=== PATIENT | female | born 1960 | race Caucasian/White ===

== ENCOUNTER → 2018-12-14 12:49 | Outpatient (CLI) | payer BC, SELFPAY ==
--- NOTE | 2018-12-14 12:52 | RAD_ITS ---
STUDY: X-RAY - CERVICAL SPINE REASON FOR EXAM: Female, 58 years old. , Numbness and tingling. TECHNIQUE: 3 view(s) of the cervical spine were obtained. COMPARISON: None FINDINGS: Normal anterior atlantoaxial articulation. Normal odontoid process. Normal cervical lordosis. Status post anterior cervical discectomy and fusion from C3 through C5 with an anterior plate with anatomic alignment. Suspect interbody fusion at C5/C6 and C6-C7 with anatomic alignment. Normal disc space heights. Normal visualized intervertebral neuroforamina. The soft tissue structures are unremarkable. RAD/Cerv Spine 2 or 3 Views IMPRESSION: Prior discectomy and fusion with anatomic alignment. Electronically Signed: Talat Claros MD at 13:45 EDT Tel , Service support ,
--- NOTE | 2018-12-14 12:52 | RAD_ITS ---
STUDY: X-RAY - SACRUM/COCCYX REASON FOR EXAM: Female, 58 years old. Pain TECHNIQUE: 3 view(s) of the sacrum and coccyx were obtained. COMPARISON: None. FINDINGS: Normal bilateral sacroiliac joints. Normal visualized sacral ala and fused sacral bodies. Marcated anterior angulation of the distal segment of the coccyx at a near 90 degree angle which may represent a normal variant or subluxation of the segment. Normal coccygeal segments. The presacral soft tissue structures are unremarkable. RAD/Sacrum-Coccyx min 2 Views IMPRESSION: Anterior angulation the distal coccygeal segment which may be a normal variant or subluxation. No definite fracture. Electronically Signed: Talat Claros MD at 13:43 EDT Tel , Service support ,
--- NOTE | 2018-12-14 13:28 | US_ITS ---
STUDY: THYROID ULTRASOUND REASON FOR EXAM: Female, 58 years old. Thyroid nodule TECHNIQUE: Ultrasound evaluation of the thyroid was performed with real-time and static [place]-scale imaging. COMPARISON: None. FINDINGS: RIGHT LOBE: The right lobe of the thyroid gland measures 5.3 x 1.6 x 1.8 cm. There is a homogeneous echotexture. There are no demonstrated solid, cystic or complex lesions. LEFT LOBE: The left lobe of the thyroid gland measures 4.6 x 1.6 x 1.3 cm. There is a homogeneous echotexture. 2 tiny colloid cyst in the left lobe measuring 2 and 3 mm in diameter. 8 mm solid and cystic nodule posteriorly in the left lobe consistent with an adenoma. ISTHMUS: The isthmus measures 2 mm thick. . The regional lymph nodes are normal. US/Thyroid IMPRESSION: 8 mm adenoma the posterior left lobe of the thyroid gland. Electronically Signed: Talat Claros MD at 16:02 EDT Tel , Service support ,
== END ==
DX: E04.1 Nontoxic single thyroid nodule (principal)
CPT/HCPCS: 72040; 72220; 76536

== ENCOUNTER → 2019-02-07 07:21 | Outpatient (CLI) | payer BC, SELFPAY ==
--- NOTE | 2019-02-07 07:23 | CT_ITS ---
STUDY: CT CERVICAL SPINE WITHOUT CONTRAST REASON FOR EXAM: Female, 58 years old. RT SIDE NECK/ARM PAIN RADIATION DOSAGE (If Supplied By Facility): CTDIvol = ( 15.25 ) mGy, DLP = ( 336.61 ) mGycm TECHNIQUE: High resolution transaxial imaging was performed without contrast material. Sagittal and coronal images were reconstructed. Individualized dose optimization techniques were used for this CT. COMPARISON: Radiographs 12/14/2018 FINDINGS: Normal craniovertebral junction. There are degenerative changes of the anterior atlantoaxial articulation. Normal odontoid process. 3 mm of C7-T1 anterolisthesis. Anterior surgical fusions of C3, C4, and C5. Surgical fusions of the C3-4, C4-5, C5-6, and C6-7 disc spaces. C2-3: Normal endplates. Normal disc height and morphology. Normal central canal and intervertebral neuroforamina. C3-4: Residual disc osteophyte complex with mild right foraminal stenosis. C4-5: Residual disc osteophyte complex with mild right foraminal stenosis. C5-6: Residual disc osteophyte complex with moderate to severe right foraminal stenosis. C6-7: Residual disc osteophyte complex with moderate right and mild left foraminal stenoses. C7-T1: Anterolisthesis and disc osteophyte complex with severe bilateral foraminal stenoses and mass effect on both C8 nerve roots. Normal visualized soft tissue structures. CT/Spine Cervical without Contras IMPRESSION: Multilevel degenerative disease and postoperative change as described. Mild C7-T1 anterolisthesis. Disc disease and anterolisthesis are associated with severe bilateral foraminal stenoses at C7-T1, mass effect on both C8 nerve roots. Electronically Signed: Zachery Perkins MD at 17:31 EST Tel , Service support ,
== END ==
PROVIDERS: Family Provider Family Medicine; PCP Family Medicine; Referring Provider Anesthesiology Pain Medicine; Visit Provider Anesthesiology Pain Medicine
DX: M54.2 Cervicalgia (principal); M79.603 Pain in arm, unspecified
CPT/HCPCS: 72125